=== PATIENT | male | born 1945 | race Caucasian/White ===

== ENCOUNTER 2016-12-29 07:15 | Day surgery (SDC) | payer MEDICARE ==
[~2016-12-29 07:15] MED LIST: ALBUTEROL2.5 MG/NEB INH; ALLOPURINOL100 MG PO; BENADRYL 50MG C50 MG PO; COREG 3.125M3.125 MG PO; FENOFIBRATE160 MG PO; FISH OIL 500 M1 EACH PO; GABAPENTIN300 MG PO; GEMFIBROZIL600 M1 PO; GOOD NEIGHBOR P10 M1 PO; IMDUR 60MG. TAB60 MG PO; KEFLEX 500MG.500 MG PO; LASIX 40MG. TAB40 MG PO; LASIX PO; LEVOTHROID0.075 MG PO; LEVOTHYROXINE0.1 MG PO; LISINOPRIL2.5 MG NG; LISINOPRIL2.5 MG PO; LOSARTAN POTASS25 MG PO; METFORMIN500 MG PO; METOCLOPRAMIDE H PO; METOLAZONE 5MG T5 MG PO; MICRO-K 10 MEQ10 MEQ PO; MOBIC15 MG PO; NIACIN1000 MG PO; NITROSTAT 0.4M0.4 MG SL; POTASSIUM CHLO10 ME3 PO; POTASSIUM PO; PREDNISONE 20MG20 MG PO; PROAIR HFA0.09 MG/AC INH; PROTONIX 40MG T40 MG PO; PROTONIX40 MG PO; SULINDAC200 MG PO; SYMBICORT1 AE1 IH; Tramadol HCl50 MG PO; VITAMIN D310000 UNI1 PO
[2016-12-29 07:57] LABS: HEMOGLOBIN 14.3 g/dL (14.1-18.0); LYMPH # 1.7 K/mm3 (0.7-4.5); LYMPH % 15.3 % (10-50)
[2016-12-29 08:00] LABS: BUN 29 mg/dL (7-18); GFR (ESTIMATED) 60 ML/MIN (>60)
--- NOTE | 2016-12-29 10:32 | RADIOLOGY REPORT PS360 ---
CARDIAC CATHETERIZATION DATE OF CATHETERIZATION:12/29/2016 8:43 AM PROCEDURES: 1. Left heart catheterization 2. Left ventriculogram 3. Selective coronary angiogram 4. FFR to the LAD 5. Drug-eluting stent deployment to the proximal and mid LAD 6. Drug-eluting stent deployment to the large first diagonal artery INDICATION FOR TEST: 1. Angina pectoris class III 2. Abnormal noninvasive cardiac study 3. Ischemic response to adenosine with an FFR 0.75 to the LAD 4. Coronary artery disease Informed consent was obtained prior to the procedure. COMPLICATIONS: None ESTIMATED BLOOD LOSS: Less than 10 ml. TECHNIQUE: One percent lidocaine used to anesthetize the right anterior aspect of the wrist. The right radial artery was accessed via the Seldinger technique. A 6 Armenian sheath was placed in the right radial artery. 2.5 mg of verapamil, 800 mcg of nitroglycerin and 5000 U Heparin were given through the arterial sheath. The pigtail catheter were used to perform left heart catheterization left ventriculogram and selective coronary angiogram. At the end of the diagnostic angiogram 60 mg of Effient oral was given and an additional 5000 units of heparin was administered. The ACT measured 227 seconds therefore an additional 2000 units of heparin was administered. An Abacastari left guide catheter was placed in the ascending aorta and the FFR wire was normalized. The guide catheter was used intubate the left main artery and the FFR wire was placed into the mid and distal LAD. Adenosine was infused in the FFR index dropped to 0.75 at just 1 minute of infusion therefore the test was terminated. Patient was also complaining of chest burning and chest pain during infusion. At this point a 3 mm x 38 mm resolute Guille stent was deployed in the mid LAD at 16 eleni. An additional 2.75 x 34 mm [place] resolute stent was then deployed at 16 eleni in the mid LAD overlapping the first stent deployed. The balloon was brought back and between the 2 stents and deployed at 20 eleni with this 2.75 mm balloon. A choice PT floppy wire was in placed into the large diagonal artery and a 3 mm x 12 mm balloon was deployed at 16 eleni in the proximal LAD extending into this very large first diagonal artery. An additional 3 mm x 15 mm resolute [place] stent was deployed at 14 eleni in the proximal LAD extending into this very large first diagonal artery. The wire was pulled back and then placed down into the LAD and a 3 mm x 8 mm balloon was used to open the struts going into the LAD proper. An additional 3 mm x 12 mm resolute Guille stent was deployed in the proximal to mid LAD crossing this very large first diagonal artery and deployed at 20 eleni. Excellent angiographic results were obtained with SHYAM-3 flow down the LAD and diagonal artery before and after the procedure. The closing ACT was 224 seconds therefore an additional 3000 units of heparin was administered intravenously. The sheath was removed good hemostasis was achieved using TR band in patient was transferred to the postop holding area in stable condition ANGIOGRAPHIC RESULTS: 1. The left main artery normal 2. The left anterior descending artery proximally has a 30-40% eccentric stenosis immediately proximal to a very large first diagonal artery. There is then additional 40 and 50% mid vessel stenoses. There is one focal area that appears to be at least 60% in the mid segment. The first diagonal artery is a larger caliber vessel then the LAD itself and has an ostial 80% stenosis. The first diagonal artery is a very large vessel equal limits in myocardial perfusion as the LAD proper 3. The circumflex artery is a nondominant yet still large caliber vessel giving rise to a large first obtuse marginal artery which has a proximal 20-30% stenosis while the second obtuse marginal artery has mild 10% stenoses 4. The right coronary artery is a large dominant vessel has proximal 10% stenoses with a mid vessel 30-40% stenosis immediately adjacent to the RV marginal branch and normal distally 5. The ABDI ventriculogram reveals normal 65% 6. The left ventricular end-diastolic pressure 18 mmHg IMPRESSION: 1. Severe disease in the very large first diagonal artery which is occluded in size and function as the LAD proper. 2. Successful stenting of the proximal LAD extending into the proximal portion of this large first diagonal artery severe disease reduced to 0% with 1 drug-eluting stent 3. Angiographically indeterminate disease in the LAD which produced a severe ischemic response to adenosine at 0.75 in the LAD 4. Successful stenting of the proximal to mid LAD reducing the hemodynamically severe disease to angiographically normal vessel with 3 drug-eluting stents as described above in the LAD proper 5. Normal ejection fraction 6. Mildly elevated LVEDP PLAN: 1. Effient and aspirin 2. LDL less than 55 3. Avoidance of tobacco products 4. Cardiac rehabilitation 5. Risk factor modification
[2016-12-29 15:04] VITALS: BP 124/81
== END 2016-12-29 15:06 | disposition home or self-care (01) ==
LOC: EDBD 07:15 → CATHLAB 07:15
PROVIDERS: Internal Medicine
PROC: B2111ZZ Fluoroscopy of Multiple Coronary Arteries using Low Osmolar Contrast (ICD-10-PCS; 2016-12-29)
PROC: B2151ZZ Fluoroscopy of Left Heart using Low Osmolar Contrast (ICD-10-PCS; 2016-12-29)
PROC: 4A033BC Measurement of Arterial Pressure, Coronary, Percutaneous Approach (ICD-10-PCS; 2016-12-29)
PROC: 027035Z Dilation of Coronary Artery, One Artery with Two Drug-eluting Intraluminal Devices, Percutaneous Approach (ICD-10-PCS; 2016-12-29)
PROC: 4A023N7 Measurement of Cardiac Sampling and Pressure, Left Heart, Percutaneous Approach (ICD-10-PCS; principal; 2016-12-29 09:30)
DX: I25.119 Atherosclerotic heart disease of native coronary artery with unspecified angina pectoris (principal); Z72.0 Tobacco use; I11.9 Hypertensive heart disease without heart failure; J44.9 Chronic obstructive pulmonary disease, unspecified; E11.9 Type 2 diabetes mellitus without complications
CPT/HCPCS: C1725; C1760; C1769; C1876; J0153; J1644; Q9967

== ENCOUNTER 2017-01-06 11:07 | Emergency (ER) | payer MEDICARE ==
[~2017-01-06] VITALS: Ht 172.7 cm; Wt 108.9 kg
[2017-01-06] MEDS ORDERED: RANEXA500 M1 PO (11:25)
[2017-01-06 11:35] LABS: HEMOGLOBIN 14.8 g/dL (14.1-18.0); LYMPH # 1.8 K/mm3 (0.7-4.5); LYMPH % 22.1 % (10-50)
--- OUTSIDE RECORDS SUMMARY | 2017-01-06 11:41 | External Medical Summary Rpt ---
Author Author , CALIXTO DE LUNA Address Unknown Phone [email or web address] Care Team Providers Care Dark Room Attendant Name Role Phone Lesia DELATORRE, Unavailable Unavailable Lesia Stevenson [employer]OTHER[employer]ICAL [employer]INE[employer], Unavailable Unavailable Vika Stevenson [employer] Purpose Continuity of Care Document - 12-07-2012 through 2016 Problems Code Diagnosis DOS Provider Status 244.9 Hypothyroid [facility] 272.4 Hyperlipide [facility] 274.9 Gout [facility] 276.8 Hypokalemia [facility] [id number] Chest pain [facility] 553.3 Hiatal [facility] [id number] Active [facility] 780.57 Sleep apnea [facility] [id number] Chronic [facility] R07.9 CHEST PAIN, UNSPECIFIED Allergies, Adverse Reactions, Alerts Type Drug Allergy Food Allergy Adverse Reaction to Substance Substance Reaction Severity Iodine-Containing Unknown Unknown Penicillin Unknown Unknown Black Pepper I-ITCHING Unknown Glover Pepper I-ITCHING W/BLACK Unknown PEPPER BLACK PEPPER (FOOD) I-ITCHING Unknown Medications Na ND Rx Da Fi Fi Am Da Di Ph RX Ph St me C No te ll ll ou ys ag ar # ys at rm s nt no ma ic us Or Da si cy ia de te s n re d SO 00 12 0 No DI 40 -1 UM 97 1- Lo 98 20 ng CH 30 13 er LO 9 RI Ac DE ti ve 0. 9% SO ASHLEY TI ON DI 00 12 0 No PH 40 -1 EN 92 1- Lo HY [address] 03 13 er AM 1 IN Ac E ti 50 ve MG /M L SY RN G Fa 63 12 0 No mo 32 -1 ti 30 1- Lo di 73 20 ng ne 90 13 er 2 20 Ac MG ti /2 ve ML Vi al SO 00 12 0 No ASHLEY 00 -1 -M 90 1- Lo ED 04 20 ng RO 72 13 er L 2 12 Ac 5 ti MG ve AL 63 06 0 No PI 73 -2 RI 90 7- Lo N 02 20 ng EC 30 13 er 1 32 Ac 5 ti MG ve TA BL ET FU 51 06 0 No RO 07 -2 SE 90 7- Lo RI 07 20 ng DE 32 13 er 0 40 Ac ti MG ve TA BL ET SY 00 06 0 No NT 07 -2 HR 45 7- Lo OI 18 20 ng D 21 13 er 75 1 Ac MC ti G ve TA BL ET LI 68 06 0 No SI 18 -2 NO 00 7- Lo WA 51 20 ng IL 20 13 er 1 2. Ac 5 ti MG ve TA BL ET KL 00 06 0 No OR 24 -2 -C 50 7- Lo ON 04 20 ng 10 13 er 10 1 Ac ME ti Q ve TA BL ET Sa 63 06 1 No li 80 -2 ne 70 6- Lo 10 20 ng Fl 07 13 er us 5 h Ac 10 ti ML ve Sy ri ng e 66 06 0 No PI 55 -2 RI 30 6- Lo N 00 20 ng 32 10 13 er 5 1 MG Ac ti TA ve BL ET NI 00 06 0 No TR 28 -2 O- 10 6- Lo BI 32 20 ng D 60 13 er 2% 8 Ac OI ti NT ve ME NT IS 00 06 1 No OS 78 -2 OR 11 6- Lo BI 55 20 ng DE 61 13 er 3 DN Ac ti 10 ve MG TA BL ET PA 51 06 1 No NT 07 -2 OP 90 6- Lo RA 05 20 ng ZO 12 13 er LE 0 Ac SO ti D ve DR 40 MG TA B Vital Signs 05-24-2013 13:06 Name Value Interpretat Reference Comment ion Range Body 97.6 [degF] Temperature BP 82 mm[Hg] Diastolic BP Systolic 149 mm[Hg] Heart 93 /min Rate/Pulse O2% 97 % Respiratory 20 /min Rate 05-24-2013 12:30 Name Value Interpretat Reference Comment ion Range BP 99 mm[Hg] Diastolic BP Systolic 147 mm[Hg] Heart 95 /min Rate/Pulse O2% 97 % Respiratory 20 /min Rate 12-08-2012 09:00 Name Value Interpretat Reference Comment ion Range Body 98.0 [degF] Temperature BP 66 mm[Hg] Diastolic BP Systolic 111 mm[Hg] Heart 78 /min Rate/Pulse Respiratory 20 /min Rate 12-08-2012 08:00 Name Value Interpretat Reference Comment ion Range O2% 97 % 12-07-2012 16:00 Name Value Interpretat Reference Comment ion Range Height 172.72 cm Weight 107.503 kg Measured 12-07-2012 01:38 Name Value Interpretat Reference Comment ion Range Body 98.0 [degF] Temperature BP 89 mm[Hg] Diastolic BP Systolic 135 mm[Hg] Heart 76 /min Rate/Pulse O2% 96 % Respiratory 20 /min Rate Weight 0 [oz_av] Measured Results Labs Lab Lab Date Result Refere Interp Status Commen Order Detail nces retati t Range on Urinalysis dipstick W Reflex Microscopic panel in Urine (01-01-2017 09:45) Bacteri 1+ O complet a 017 ed [Presen 09:45 ce] in Urine sedimen t by Light microsc opy Erythro NONE 0 complet cytes 017 ed [Presen 09:45 ce] in Urine sedimen t by Light microsc opy Epithel 3-5 OCC complet ial 017 ed cells.s 09:45 quamous [Presen ce] in Urine sedimen t by Microsc opy high power field Urinalysis dipstick W Reflex Microscopic panel in Urine (01-01-2017 09:45) Appeara CLEAR CLEAR complet nce of 017 ed Urine 09:45 Bilirub NEGATIV NEG complet in 017 E ed [Presen 09:45 ce] in Urine by Test strip Erythro TRACE-L NEG complet cytes 017 YSED ed [Presen 09:45 ce] in Urine Color YELLOW YELLOW complet of 017 ed Urine 09:45 Ketones NEGATIV NEG complet 017 E ed [Presen 09:45 ce] in Urine by Automat ed test strip Mucus NEGATIV NEG complet [Presen 017 E ed ce] in 09:45 Urine sedimen t by Light microsc opy Nitrite NEGATIV NEG complet 017 E ed [Presen 09:45 ce] in Urine by Test strip Urobili 0.2 NEG complet nogen 017 ed [Presen 09:45 ce] in Urine by Test strip COMPREHENSIVE METABOLIC PANEL (05-24-2013 11:40) Glucose 204 74-106 complet 013 mg/dL ed Bld-mCn 11:40 c BUN 20 7-18 complet Bld-mCn 013 mg/dL ed c 11:40 Creat 1.1 0.8-1.3 complet SerPl-m 013 mg/dL ed Cnc 11:40 GFR/BSA 67 Greater complet .pred 013 ML/MIN than ed SerPl 11:40 60 Schwart z-vRate Sodium 136 136-145 complet SerPl-s 013 mmoL/L ed Cnc 11:40 Potassi 3.5 3.5-5.1 complet um 013 mmoL/L ed SerPl-s 11:40 Cnc Chlorid 100 98-107 complet e 013 mmoL/L ed SerPl-s 11:40 Cnc CO2 30 21.0-32 complet SerPl-s 013 mmoL/L .0 ed Cnc 11:40 Calcium 9.1 8.5-10. complet 013 mg/dL 1 ed SerPl-m 11:40 Cnc Prot 7.6 6.4-8.2 complet SerPl-m 013 gm/dL ed Cnc 11:40 Albumin 4.0 3.4-5.0 complet 013 gm/dL ed SerPl-m 11:40 Cnc Globuli 3.6 1.3-3.2 complet n 013 gm/dL ed Ser-mCn 11:40 c Albumin 1.1 UNK 1.1-1.8 complet /Glob 013 ed SerPl-m 11:40 Rto Bilirub 1.1 0.2-1.0 complet 013 mg/dL ed SerPl-m 11:40 Cnc AST 34 U/L 15-37 complet SerPl-c 013 ed Cnc 11:40 ALT 91 U/L 30-65 complet SerPl-c 013 ed Cnc 11:40 ALP 90 U/L 50-136 complet SerPl-c 013 ed Cnc 11:40 CBC with AUTO DIFF (05-24-2013 11:40) WBC # 12-11-2 6.3 4.8-10. complet Bld 013 K/MM3 8 ed Auto 11:40 RBC # 12-11-2 5.30 4.6-6.2 complet Bld 013 M/mm3 ed Auto 11:40 Hgb 12-11-2 16.7 14.1-18 complet Bld-mCn 013 g/dL .0 ed c 11:40 Hct Fr 12-11-2 48.2 % 42.0-52 complet Bld 013 .0 ed 11:40 MCV RBC 12-11-2 90.9 fl 82.2-97 complet 013 .8 ed 11:40 MCH RBC 11-2 31.5 pg 27-31.2 complet Qn 013 ed Auto 11:40 MEAN 12-11-2 34.7 31.8-35 complet CORPUSC 013 g/dl .4 ed ULAR 11:40 HGB CONC RDW RBC -11-2 14.2 % 11.5-17 complet Auto 013 .5 ed 11:40 Platele 12-11-2 261 142-424 complet t Bld 013 K/mm3 ed Ql 11:40 Manual MEAN 05-24-2 7.3 fl 7.4-10. complet PLATELE 013 4 ed T 11:40 VOLUME Granulo 12-11-2 55.0 % 37.0-80 complet cytes 013 .0 ed Fr Bld 11:40 Auto LYMPH % 12-11-2 39.2 % 10-50 complet 013 ed 11:40 Monocyt 12-11-2 4.6 % 1.7-9.3 complet es Fr 013 ed Bld 11:40 Auto Eosinop 12-11-2 0.6 % 0.1-12. complet hil Fr 013 0 ed Bld 11:40 Auto Basophi 12-11-2 0.6 % 0.1-2.0 complet ls Fr 013 ed Bld 11:40 Auto Granulo 12-11-2 3.5 1.3-8.0 complet cytes # 013 K/mm3 ed Bld 11:40 Auto Lymphoc 12-11-2 2.5 0.7-4.5 complet ytes Fr 013 K/mm3 ed Bld 11:40 Auto Monocyt 12-11-2 0.3 0.1-1.0 complet es # 013 K/mm3 ed Bld 11:40 Auto Eosinop 11-2 0.0 0.0-0.4 complet hil # 013 K/mm3 ed Bld 11:40 Auto Basophi 11-2 0.0 0-0.2 complet ls # 013 K/MM3 ed Bld 11:40 Auto COMPREHENSIVE METABOLIC PANEL (12-07-2012 02:00) Glucose 121 74-106 complet 013 mg/dL ed Bld-mCn 02:00 c BUN 26 7-18 complet Bld-mCn 013 mg/dL ed c 02:00 Creat 1.4 0.8-1.3 complet SerPl-m 013 mg/dL ed Cnc 02:00 GFR 51 Greater complet (ESTIMA 013 ML/MIN than ed JOVITA) 02:00 60 Sodium 138 136-145 complet SerPl-s 013 mmoL/L ed Cnc 02:00 Potassi 4.1 3.5-5.1 complet um 013 mmoL/L ed SerPl-s 02:00 Cnc Chlorid 103 98-107 complet e 013 mmoL/L ed SerPl-s 02:00 Cnc CO2 30 21.0-32 complet SerPl-s 013 mmoL/L .0 ed Cnc 02:00 Calcium 8.7 8.5-10. complet 013 mg/dL 1 ed SerPl-m 02:00 Cnc Prot 6.8 6.4-8.2 complet SerPl-m 013 gm/dL ed Cnc 02:00 Albumin 3.8 3.4-5.0 complet 013 gm/dL ed SerPl-m 02:00 Cnc Globuli 3.0 1.3-3.2 complet n 013 gm/dL ed Ser-mCn 02:00 c Albumin 1.3 UNK 1.1-1.8 complet /Glob 013 ed SerPl-m 02:00 Rto Bilirub 0.4 0.2-1.0 complet 013 mg/dL ed SerPl-m 02:00 Cnc AST 23 U/L 15-37 complet SerPl-c 013 ed Cnc 02:00 ALT 75 U/L 30-65 complet SerPl-c 013 ed Cnc 02:00 ALP 80 U/L 50-136 complet SerPl-c 013 ed Cnc 02:00 Amylase SerPl-cCnc (12-07-2012 02:00) Amylase 45 U/L 25-115 complet 013 ed SerPl-c 02:00 Cnc LIPASE (12-07-2012 02:00) LIPASE 140 U/L 73-393 complet 013 ed 02:00 CBC with AUTO DIFF (12-07-2012 02:00) WBC # 12-07-2 5.0 4.8-10. complet Bld 013 K/MM3 8 ed Auto 02:00 RBC # 12-07-2 4.62 4.6-6.2 complet Bld 013 M/mm3 ed Auto 02:00 Hgb 12-07-2 15.0 14.1-18 complet Bld-mCn 013 g/dL .0 ed c 02:00 Hct Fr 43.6 % 42.0-52 complet Bld 013 .0 ed 02:00 MCV RBC 12-07-2 94.3 fl 82.2-97 complet 013 .8 ed 02:00 MCH RBC 12-07-2 32.5 pg 27-31.2 complet Qn 013 ed Auto 02:00 MEAN 12-07-2 34.5 31.8-35 complet CORPUSC 013 g/dl .4 ed ULAR 02:00 HGB CONC RDW RBC 12-07-2 13.2 % 11.5-17 complet Auto 013 .5 ed 02:00 Platele 12-07-2 246 142-424 complet t Bld 013 K/mm3 ed Ql 02:00 Manual MEAN 12-07-2 7.1 fl 7.4-10. complet PLATELE 013 4 ed T 02:00 VOLUME Granulo 12-07-2 55.5 % 37.0-80 complet cytes 013 .0 ed Fr Bld 02:00 Auto LYMPH % 12-07-2 31.7 % 10-50 complet 013 ed 02:00 Monocyt 12-07-2 6.7 % 1.7-9.3 complet es Fr 013 ed Bld 02:00 Auto Eosinop 12-07-2 4.8 % 0.1-12. complet hil Fr 013 0 ed Bld 02:00 Auto Basophi 12-07-2 1.4 % 0.1-2.0 complet ls Fr 013 ed Bld 02:00 Auto Granulo 2 2.8 1.3-8.0 complet cytes # 013 K/mm3 ed Bld 02:00 Auto Lymphoc 2 1.6 0.7-4.5 complet ytes Fr 013 K/mm3 ed Bld 02:00 Auto Monocyt 12-07-2 0.3 0.1-1.0 complet es # 013 K/mm3 ed Bld 02:00 Auto Eosinop 2 0.2 0.0-0.4 complet hil # 013 K/mm3 ed Bld 02:00 Auto Basophi 12-07-2 0.1 0-0.2 complet ls # 013 K/MM3 ed Bld 02:00 Auto Encounters Encounter Start End Date Code Location Performer Type Date Emergency JOHN ALVA MD (ER) 3 12:00 3 13:07 [facility] Inpatient [place] ([place]) 3 01:45 3 09:00 [facility]
--- OUTSIDE RECORDS SUMMARY | 2017-01-06 11:41 | External Medical Summary Rpt ---
Author Author , CALIXTO DE LUNA Address Unknown Phone [email or web address] Care Team Providers Care Wash Barrel Leader Name Role Phone Lesia DELATORRE, Unavailable Unavailable Lesia Stevenson [facility], Unavailable Unavailable Vika Stevenson [facility] Purpose Continuity of Care Document - 12-07-2012 through 2016 Problems Code Diagnosis DOS Provider Status 244.9 Hypothyroid [facility] 272.4 Hyperlipide [facility] 274.9 Gout [facility] 276.8 Hypokalemia [facility] [id number] Chest pain [facility] 553.3 Hiatal [facility] [id number] Active [facility] 780.57 Sleep apnea [facility] [id number] Chronic [facility] R07.9 CHEST PAIN, UNSPECIFIED Allergies, Adverse Reactions, [...] RO 07 -2 SE 90 7- Lo [place] 07 20 ng DE 32 13 er 0 40 Ac ti MG ve TA BL ET SY 00 06 0 No NT 07 -2 HR 45 7- Lo OI 18 20 ng D 21 13 er 75 1 Ac MC ti G ve TA BL ET LI 68 06 0 No SI 18 -2 NO 00 7- Lo NV 51 20 ng [place] 20 13 er [...] ALVA MD (ER) 3 12:00 3 13:[address] [facility] Inpatient [place] ([place]) 3 01:45 3 09:00 [facility]
--- OUTSIDE RECORDS SUMMARY | 2017-01-06 11:41 | External Medical Summary Rpt ---
Demographics Preferred Language Urdu Marital Status Unknown Caodaism Affiliation Unknown Race Unknown Ethnic Group Unknown Author Author , CALIXTO DE LUNA Address Unknown Phone Immunization Unable to retrieve immunization data due to connection failure with Immunization Registry. Please try again later.
--- OUTSIDE RECORDS SUMMARY | 2017-01-06 11:41 | External Medical Summary Rpt ---
Demographics Preferred Language Faroese Marital Status Unknown Druze Affiliation Unknown Race Unknown Ethnic Group Unknown Author Author , CALIXTO DE LUNA Address Unknown Phone Immunization Unable to retrieve immunization data due to connection failure with Immunization Registry. Please try again later.
--- OUTSIDE RECORDS SUMMARY | 2017-01-06 11:42 | External Medical Summary Rpt ---
Author Author [facility] [facility], [employer] Organization [employer] Address Unknown Phone Unavailable Results Urinalysis dipstick W Reflex Microscopic panel in Urine Observa Value Referen Units Interpr Notes Date tion ce etation Range Appeara CLEAR CLEAR No No No Jan 01 nce of informa informa informa 2016 Urine tion in tion in tion in 9:45 AM source source source data data data Bacteri 1+ O No No No Jan 01 a informa informa informa 2016 [Presen tion in tion in tion in 9:45 AM ce] in source source source Urine data data data sedimen t by Light microsc opy Bilirub NEGATIV NEG No No No Jan 01 in E informa informa informa 2016 [Presen tion in tion in tion in 9:45 AM ce] in source source source Urine data data data by Test strip Erythro TRACE-L NEG No No No Jan 01 cytes YSED informa informa informa 2016 [Presen tion in tion in tion in 9:45 AM ce] in source source source Urine data data data Color YELLOW YELLOW No No No Jan 01 of informa informa informa 2016 Urine tion in tion in tion in 9:45 AM source source source data data data Glucose NEG No No No Jan 01 [Mass/vol informati informati informati 2016 9:45 ume] in on in on in on in AM Urine by source source source Test data data data strip Ketones NEGATIV NEG mg/dL No No Jan 01 E informa informa 2016 [Presen tion in tion in 9:45 AM ce] in source source Urine data data by Automat ed test strip Mucus NEGATIV NEG No No No Jan 01 [Presen E informa informa informa 2016 ce] in tion in tion in tion in 9:45 AM Urine source source source sedimen data data data t by Light microsc opy Nitrite NEGATIV NEG No No No Jan 01 E informa informa informa 2016 [Presen tion in tion in tion in 9:45 AM ce] in source source source Urine data data data by Test strip pH of 5.0 - 8.5 No Normal No Jan 01 Urine informati informati 2017 9:45 on in on in AM source source data data Protein NEG mg/dL No No Jan 01 [Mass/vol informati informati 2017 9:45 ume] in on in on in AM Urine by source source Automated data data test strip Erythro NONE 0 rbc/hpf No No Jan 01 cytes informa informa 2016 [Presen tion in tion in 9:45 AM ce] in source source Urine data data sedimen t by Light microsc opy Specific 1.005 - No Normal No Jan 01 gravity 1.030 informati informati 2017 9:45 of Urine on in on in AM source source data data Epithel 3-5 OCC #/hpf No No Jan 01 ial informa informa 2017 cells.s tion in tion in 9:45 AM quamous source source data data [Presen ce] in Urine sedimen t by Microsc opy high power field Urobili 0.2 NEG E.U./dL No No Jan 01 nogen informa informa 2016 [Presen tion in tion in 9:45 AM ce] in source source Urine data data by Test strip Leukocyte O wbc/hpf No No Jan 01 s informati informati 2017 9:45 [#/volume on in on in AM ] in source source Urine data data Urinalysis dipstick W Reflex Microscopic panel in Urine Observa Value Referen Units Interpr Notes Date tion ce etation Range Appeara CLEAR CLEAR No No No Jan 01 nce of informa informa informa 2017 Urine tion in tion in tion in 9:45 AM source source source data data data Bilirub NEGATIV NEG No No No Jan 01 in E informa informa informa 2016 [Presen tion in tion in tion in 9:45 AM ce] in source source source Urine data data data by Test strip Erythro TRACE-L NEG No No No Jan 01 cytes YSED informa informa informa 2017 [Presen tion in tion in tion in 9:45 AM ce] in source source source Urine data data data Color YELLOW YELLOW No No No Jan 01 of informa informa informa 2016 Urine tion in tion in tion in 9:45 AM source source source data data data Glucose NEG No No No Jan 01 [Mass/vol informati informati informati 2016 9:45 ume] in on in on in on in AM Urine by source source source Test data data data strip Ketones NEGATIV NEG mg/dL No No Jan 01 E informa informa 2016 [Presen tion in tion in 9:45 AM ce] in source source Urine data data by Automat ed test strip Mucus NEGATIV NEG No No No Jan 01 [Presen E informa informa informa 2016 ce] in tion in tion in tion in 9:45 AM Urine source source source sedimen data data data t by Light microsc opy Nitrite NEGATIV NEG No No No Jan 01 E informa informa informa 2016 [Presen tion in tion in tion in 9:45 AM ce] in source source source Urine data data data by Test strip pH of 5.0 - 8.5 No Normal No Jan 01 Urine informati informati 2016 9:45 on in on in AM source source data data Protein NEG mg/dL No No Jan 01 [Mass/vol informati informati 2016 9:45 ume] in on in on in AM Urine by source source Automated data data test strip Specific 1.005 - No Normal No Jan 01 gravity 1.030 informati informati 2016 9:45 of Urine on in on in AM source source data data Urobili 0.2 NEG E.U./dL No No Jan 01 nogen informa informa 2016 [Presen tion in tion in 9:45 AM ce] in source source Urine data data by Test strip Natriutietic peptide B [Mass/volume] in Serum or Plasma Observa Value Referen Units Interpr Notes Date tion ce etation Range Natriutie 0 - 100 pg/mL Normal No Jan 01 tic informati 2016 9:35 peptide B on in AM source [Mass/vol data ume] in Serum or Plasma Cardiac enzymes Observa Value Referen Units Interpr Notes Date tion ce etation Range Creatine 0 - 4.0 U/L Normal No Jan 01 kinase.MB informati 2016 9:35 /Creatine on in AM source kinase.to data deidra [Ratio] in Serum or Plasma Creatine 0.0 - 3.6 ng/mL Normal No Jan 01 kinase.MB informati 2017 9:35 on in AM [Mass/vol source ume] in data Serum or Plasma Creatine 39 - 308 U/L Normal No Jan 01 kinase informati 2017 9:35 [Enzymati on in AM c source activity/ data volume] in Serum or Plasma Troponin 0.00 - ng/mL High 0.04 - Jan 01 I.cardiac 0.06 0.49 IS 2017 9:35 AN AM [Mass/vol INDETERMI ume] in NANT Serum or ZONEAnd Plasma can be consisten t with the following diseases: Trauma Criticall y ill patients Huynh >30% TBSACHF Hypothyro idism Amyloidos isHyperte nsion Myocardit is SepsisHyp otension Rhabdomyo lysis Vital exhaust.P ostop surgery Pulmonary embolism CVARenal failure Acute neurologi wilberto disease Atrial fib. Comprehensive metabolic 2000 panel in Serum or Plasma Observa Value Referen Units Interpr Notes Date tion ce etation Range Albumin/G 1.1 - 1.8 No Low No Jan 01 lobulin informati informati 2016 9:35 [Mass on in on in AM ratio] in source source Serum or data data Plasma Albumin 3.4 - 5.0 gm/dL Normal No Jan 01 [Mass/vol informati 2016 9:35 ume] in on in AM Serum or source Plasma data Alkaline 46 - 116 U/L Normal No Jan 01 phosphata informati 2016 9:35 se on in AM [Enzymati source c data activity/ volume] in Serum or Plasma Bilirubin 0.2 - 1.0 mg/dL Normal No Jan 01 .total informati 2016 9:35 [Mass/vol on in AM ume] in source Serum or data Plasma Urea 7 - 18 mg/dL High No Jan 01 nitrogen informati 2016 9:35 [Mass/vol on in AM ume] in source Serum or data Plasma Calcium 8.5 - mg/dL Normal No Jan 01 [Mass/vol 10.1 informati 2016 9:35 ume] in on in AM Serum or source Plasma data Chloride 98 - 107 mmoL/L Normal No Jan 01 [Moles/vo informati 2016 9:35 lume] in on in AM Serum or source Plasma data Carbon 21.0 - mmoL/L High No Jan 01 dioxide, 32.0 informati 2016 9:35 total on in AM [Moles/vo source lume] in data Serum or Plasma Creatinin 0.70 - mg/dL Normal No Jan 01 e 1.30 informati 2016 9:35 [Mass/vol on in AM ume] in source Serum or data Plasma Creatinin 50 - 200 ML/MIN Normal No Jan 01 e renal informati 2016 9:35 clearance on in AM source predicted data by Cockcroft -Gault formula Estimated >60 ML/MIN No REFERENCE Jan 01 informati RANGE: 2017 9:35 glomerula on in >60 AM r source ML/MIN/1. filtratio data 73 SQUARE n rate METERSIf (GF this patient is -A merican, then multiply theresult by 1.210. Globulin 1.3 - 3.2 gm/dL High No Jan 01 [Mass/vol informati 2016 9:35 ume] in on in AM Serum source data Glucose 74 - 106 mg/dL High No Jan 01 [Mass/vol informati 2016 9:35 ume] in on in AM Serum or source Plasma data Potassium 3.5 - 5.1 mmoL/L Normal MAY BE Jan 01 ELEVATED 2016 9:35 [Moles/vo DUE TO AM lume] in SLIGHT Serum or HEMOLYSIS Plasma Sodium 136 - 145 mmoL/L Normal No Jan 01 [Moles/vo informati 2016 9:35 lume] in on in AM Serum or source Plasma data Aspartate 15 - 37 U/L Normal MAY BE Jan 01 ELEVATED 2016 9:35 aminotran DUE TO AM sferase SLIGHT [Enzymati HEMOLYSIS c activity/ volume] in Serum or Plasma Alanine 12 - 78 U/L Normal No Jan 01 aminotran informati 2016 9:35 sferase on in AM [Enzymati source c data activity/ volume] in Serum or Plasma Protein 6.4 - 8.2 gm/dL Normal No Jan 01 [Mass/vol informati 2016 9:35 ume] in on in AM Serum or source Plasma data CBC W Auto Differential panel in Blood Observa Value Referen Units Interpr Notes Date tion ce etation Range Granulocy 1.3 - 8.0 K/mm3 Normal No Jan 01 machelle informati 2016 9:35 [#/volume on in AM ] in source Blood by data Automated count Granulocy 37.0 - % Normal No Jan 01 machelle/100 80.0 informati 2016 9:35 leukocyte on in AM s in source Blood by data Automated count Hematocri 42.0 - % Normal No Jan 01 t [Volume 52.0 informati 2016 9:35 on in AM Fraction] source of Blood data Hemoglobi 14.1 - g/dL Normal No Jan 01 n 18.0 informati 2016 9:35 [Mass/vol on in AM ume] in source Blood data Lymphocyt 0.7 - 4.5 K/mm3 Normal No Jan 01 es informati 2016 9:35 [#/volume on in AM ] in source Unspecifi data ed specimen by Automated count Lymphocyt 10 - 50 % Normal No Jan 01 es informati 2016 9:35 [#/volume on in AM ] in source Unspecifi data ed specimen by Automated count Erythrocy 27 - 31.2 pg Normal No Jan 01 te mean informati 2016 9:35 corpuscul on in AM ar source hemoglobi data n [Entitic mass] Erythrocy 31.8 - g/dl Normal No Jan 01 te mean 35.4 informati 2016 9:35 corpuscul on in AM ar source hemoglobi data n concentra tion [Mass/vol ume] by Automated count Erythrocy 82.2 - fL Normal No Jan 01 te mean 97.8 informati 2016 9:35 corpuscul on in AM ar volume source [Entitic data volume] by Automated count Monocytes 0.1 - 1.0 K/mm3 Normal No Jan 01 informati 2017 9:35 [#/volume on in AM ] in source Blood by data Automated count Monocytes 1.7 - 9.3 % Normal No Jan 01 /100 informati 2016 9:35 leukocyte on in AM s in source Blood by data Automated count Platelets 142 - 424 K/mm3 Normal No Jan 01 informati 2017 9:35 [#/volume on in AM ] in source Blood data Erythrocy 4.6 - 6.2 M/mm3 Normal No Jan 01 machelle informati 2017 9:35 [#/volume on in AM ] in source Amniotic data fluid Erythrocy 11.5 - % Normal No Jan 01 te 17.5 informati 2017 9:35 distribut on in AM ion width source [Entitic data volume] by Automated count Leukocyte 4.8 - K/mm3 Normal No Jan 01 s 10.8 informati 2016 9:35 [#/volume on in AM ] in source Blood data Activated clotting time in Blood by Coagulation assay Observa Value Referen Units Interpr Notes Date tion ce etation Range Activated 74 - 125 SEC High No Dec 29 clotting alert informati 2017 9:53 time in on in AM Blood by source Coagulati data on assay Activated clotting time in Blood by Coagulation assay Observa Value Referen Units Interpr Notes Date tion ce etation Range Activated 74 - 125 SEC High No Dec 29 clotting alert informati 2016 9:23 time in on in AM Blood by source Coagulati data on assay Basic metabolic panel in Blood Observa Value Referen Units Interpr Notes Date tion ce etation Range Urea 7 - 18 mg/dL High No Dec 29 nitrogen informati 2016 7:40 [Mass/vol on in AM ume] in source Serum or data Plasma Calcium 8.5 - mg/dL Normal No Dec 29 [Mass/vol 10.1 informati 2016 7:40 ume] in on in AM Serum or source Plasma data Chloride 98 - 107 mmoL/L Normal No Dec 29 [Moles/vo informati 2016 7:40 lume] in on in AM Serum or source Plasma data Carbon 21.0 - mmoL/L Normal No Dec 29 dioxide, 32.0 informati 2016 7:40 total on in AM [Moles/vo source lume] in data Serum or Plasma Creatinin 0.70 - mg/dL Normal No Dec 29 e 1.30 informati 2017 7:40 [Mass/vol on in AM ume] in source Serum or data Plasma Estimated >60 ML/MIN No REFERENCE Dec 29 informati RANGE: 2017 7:40 glomerula on in >60 AM r source ML/MIN/1. filtratio data 73 SQUARE n rate METERSIf (GF this patient is -A merican, then multiply theresult by 1.210. Glucose 74 - 106 mg/dL Normal No Dec 29 [Mass/vol informati 2016 7:40 ume] in on in AM Serum or source Plasma data Potassium 3.5 - 5.1 mmoL/L Normal No Dec 29 informati 2016 7:40 [Moles/vo on in AM lume] in source Serum or data Plasma Sodium 136 - 145 mmoL/L Normal No Dec 29 [Moles/vo informati 2016 7:40 lume] in on in AM Serum or source Plasma data CBC W Auto Differential panel in Blood Observa Value Referen Units Interpr Notes Date tion ce etation Range Basophils 0 - 0.2 K/MM3 Normal No Dec 29 informati 2016 7:40 [#/volume on in AM ] in source Blood by data Automated count Basophils 0.1 - 2.0 % Normal No Dec 29 /100 informati 2016 7:40 leukocyte on in AM s in source Blood by data Automated count Eosinophi 0.0 - 0.4 K/mm3 Normal No Dec 29 ls informati 2016 7:40 [#/volume on in AM ] in source Blood by data Automated count Eosinophi 0.1 - % Normal No Dec 29 ls/100 12.0 informati 2016 7:40 leukocyte on in AM s in source Blood by data Automated count Granulocy 1.3 - 8.0 K/mm3 High No Dec 29 machelle informati 2016 7:40 [#/volume on in AM ] in source Blood by data Automated count Granulocy 37.0 - % Normal No Dec 29 machelle/100 80.0 informati 2016 7:40 leukocyte on in AM s in source Blood by data Automated count Hematocri 42.0 - % Normal No Dec 29 t [Volume 52.0 informati 2016 7:40 on in AM Fraction] source of Blood data Hemoglobi 14.1 - g/dL Normal No Dec 29 n 18.0 informati 2016 7:40 [Mass/vol on in AM ume] in source Blood data Lymphocyt 0.7 - 4.5 K/mm3 Normal No Dec 29 es informati 2016 7:40 [#/volume on in AM ] in source Unspecifi data ed specimen by Automated count Lymphocyt 10 - 50 % Normal No Dec 29 es informati 2016 7:40 [#/volume on in AM ] in source Unspecifi data ed specimen by Automated count Erythrocy 27 - 31.2 pg High No Dec 29 te mean informati 2016 7:40 corpuscul on in AM ar source hemoglobi data n [Entitic mass] Erythrocy 31.8 - g/dl Normal No Dec 29 te mean 35.4 informati 2017 7:40 corpuscul on in AM ar source hemoglobi data n concentra tion [Mass/vol ume] by Automated count Erythrocy 82.2 - fl Normal No Dec 29 te mean 97.8 informati 2016 7:40 corpuscul on in AM ar volume source [Entitic data volume] by Automated count Monocytes 0.1 - 1.0 K/mm3 Normal No Dec 29 informati 2016 7:40 [#/volume on in AM ] in source Blood by data Automated count Monocytes 1.7 - 9.3 % Normal No Dec 29 informati 2016 7:40 leukocyte on in AM s in source Blood by data Automated count Platelet 7.4 - fl Low No Dec 29 mean 10.4 informati 2016 7:40 volume on in AM [Entitic source volume] data in Blood by Automated count Platelets 142 - 424 K/mm3 Normal No Dec 29 informati 2016 7:40 [#/volume on in AM ] in source Blood data Erythrocy 4.6 - 6.2 M/mm3 Low No Dec 29 machelle informati 2016 7:40 [#/volume on in AM ] in source Amniotic data fluid Erythrocy 11.5 - % Normal No Dec 29 te 17.5 informati 2016 7:40 distribut on in AM ion width source [Entitic data volume] by Automated count Leukocyte 4.8 - K/MM3 Normal No Dec 29 s 10.8 informati 2016 7:40 [#/volume on in AM ] in source Blood data Glucose [Mass/volume] in Capillary blood by Glucometer Observa Value Referen Units Interpr Notes Date ti ce etation Range Glucose 70 - 110 mg/dl Normal No Nov 16 [Mass/vol informati 2016 ume] in on in 11:15 AM Capillary source blood by data Glucomete r Glucose [Mass/volume] in Capillary blood by Glucometer Observa Value Referen Units Interpr Notes Date ti ce etation Range Glucose 70 - 110 mg/dl Normal No Nov 27 [Mass/vol informati 2016 6:19 ume] in on in AM Capillary source blood by data Glucomete r CBC W Auto Differential panel in Blood Observa Value Referen Units Interpr Notes Date ti etation Range Basophils 0 - 0.2 K/MM3 Normal No Nov 27 informati 2016 3:30 [#/volume on in AM ] in source Blood by data Automated count Basophils 0.1 - 2.0 % Normal No Nov 27 informati 2016 3:30 leukocyte on in AM s in source Blood by data Automated count Eosinophi 0.0 - 0.4 K/mm3 Normal No Nov 27 ls informati 2016 3:30 [#/volume on in AM ] in source Blood by data Automated count Eosinophi 0.1 - % Normal No Buck 16 ls/100 12.0 informati 2017 3:30 leukocyte on in AM s in source Blood by data Automated count Granulocy 1.3 - 8.0 K/mm3 Normal No Nov 16 machelle informati 2016 3:30 [#/volume on in AM ] in source Blood by data Automated count Granulocy 37.0 - % Normal No Nov 16 machelle/100 80.0 informati 2016 3:30 leukocyte on in AM s in source Blood by data Automated count Hematocri 42.0 - % Normal No Nov 16 t [Volume 52.0 informati 2016 3:30 on in AM Fraction] source of Blood data Hemoglobi 14.1 - g/dL Normal No Nov 16 n 18.0 informati 2016 3:30 [Mass/vol on in AM ume] in source Blood data Lymphocyt 0.7 - 4.5 K/mm3 Normal No Nov 27 es informati 2016 3:30 [#/volume on in AM ] in source Unspecifi data ed specimen by Automated count Lymphocyt 10 - 50 % Normal No Nov 27 es informati 2016 3:30 [#/volume on in AM ] in source Unspecifi data ed specimen by Automated count Erythrocy 27 - 31.2 pg High No Nov 27 te mean informati 2016 3:30 corpuscul on in AM ar source hemoglobi data n [Entitic mass] Erythrocy 31.8 - g/dl Normal No Nov 27 te mean 35.4 informati 2016 3:30 corpuscul on in AM ar source hemoglobi data n concentra tion [Mass/vol ume] by Automated count Erythrocy 82.2 - fl Normal No Nov 27 te mean 97.8 informati 2016 3:30 corpuscul on in AM ar volume source [Entitic data volume] by Automated count Monocytes 0.1 - 1.0 K/mm3 Normal No Nov 16 informati 2016 3:30 [#/volume on in AM ] in source Blood by data Automated count Monocytes 1.7 - 9.3 % Normal No Nov 16 / informati 2016 3:30 leukocyte on in AM s in source Blood by data Automated count Platelet 7.4 - fl Low No Nov 27 mean 10.4 informati 2016 3:30 volume on in AM [Entitic source volume] data in Blood by Automated count Platelets 142 - 424 K/mm3 Normal No Nov 27 informati 2016 3:30 [#/volume on in AM ] in source Blood data Erythrocy 4.6 - 6.2 M/mm3 Low No Nov 16 machelle informati 2016 3:30 [#/volume on in AM ] in source Amniotic data fluid Erythrocy 11.5 - % Normal No Nov 16 te 17.5 informati 2016 3:30 distribut on in AM ion width source [Entitic data volume] by Automated count Leukocyte 4.8 - K/MM3 Normal No Nov 16 s 10.8 informati 2016 3:30 [#/volume on in AM ] in source Blood data Cardiac enzymes Observa Value Referen Units Interpr Notes Date tion ce etation Range Creatine 0 - 4.0 U/L Normal No Nov 23 kinase.MB informati 2016 /Creatine on in 12:23 PM source kinase.to data deidra [Ratio] in Serum or Plasma Creatine 0.0 - 3.6 ng/mL Normal No Nov 23 kinase.MB informati 2016 on in 12:23 PM [Mass/vol source ume] in data Serum or Plasma Creatine 39 - 308 U/L Normal No Nov 23 kinase informati 2016 [Enzymati on in 12:23 PM c source activity/ data volume] in Serum or Plasma Troponin 0.00 - ng/mL Normal No Nov 23 I.cardiac 0.06 informati 2016 on in 12:23 PM [Mass/vol source ume] in data Serum or Plasma Comprehensive metabolic 2000 panel in Serum or Plasma Observa Value Referen Units Interpr Notes Date tion ce etation Range Albumin/G 1.1 - 1.8 No Normal No Nov 23 lobulin informati informati 2016 [Mass on in on in 12:23 PM ratio] in source source Serum or data data Plasma Albumin 3.4 - 5.0 gm/dL Normal No Nov 23 [Mass/vol informati 2016 ume] in on in 12:23 PM Serum or source Plasma data Alkaline 46 - 116 U/L Normal No Nov 23 phosphata informati 2016 se on in 12:23 PM [Enzymati source c data activity/ volume] in Serum or Plasma Bilirubin 0.2 - 1.0 mg/dL Normal No Nov 23 .total informati 2016 [Mass/vol on in 12:23 PM ume] in source Serum or data Plasma Urea 7 - 18 mg/dL Normal No Nov 23 nitrogen informati 2016 [Mass/vol on in 12:23 PM ume] in source Serum or data Plasma Calcium 8.5 - mg/dL Normal No Nov 23 [Mass/vol 10.1 informati 2017 ume] in on in 12:23 PM Serum or source Plasma data Chloride 98 - 107 mmoL/L Normal No Buck 12 [Moles/vo informati 2017 lume] in on in 12:23 PM Serum or source Plasma data Carbon 21.0 - mmoL/L Normal No Buck 12 dioxide, 32.0 informati 2017 total on in 12:23 PM [Moles/vo source lume] in data Serum or Plasma Creatinin 0.70 - mg/dL Normal No Nov 12 e 1.30 informati 2017 [Mass/vol on in 12:23 PM ume] in source Serum or data Plasma Estimated >60 ML/MIN No REFERENCE Buck 12 informati RANGE: 2017 glomerula on in >60 12:23 PM r source ML/MIN/1. filtratio data 73 SQUARE n rate METERSIf (GF this patient is -A merican, then multiply theresult by 1.210. Globulin 1.3 - 3.2 gm/dL High No Nov 23 [Mass/vol informati 2017 ume] in on in 12:23 PM Serum source data Glucose 74 - 106 mg/dL High No Nov 12 [Mass/vol informati 2017 ume] in on in 12:23 PM Serum or source Plasma data Potassium 3.5 - 5.1 mmoL/L Normal No Buck 12 informati 2017 [Moles/vo on in 12:23 PM lume] in source Serum or data Plasma Sodium 136 - 145 mmoL/L Normal No Nov 12 [Moles/vo informati 2017 lume] in on in 12:23 PM Serum or source Plasma data Aspartate 15 - 37 U/L Normal No Nov 23 informati 2017 aminotran on in 12:23 PM sferase source [Enzymati data c activity/ volume] in Serum or Plasma Alanine 12 - 78 U/L Normal No Nov 23 aminotran informati 2017 sferase on in 12:23 PM [Enzymati source c data activity/ volume] in Serum or Plasma Protein 6.4 - 8.2 gm/dL Normal No Buck 12 [Mass/vol informati 2017 ume] in on in 12:23 PM Serum or source Plasma data
[2017-01-06 12:00] LABS: BUN 16 mg/dL (7-18)
[2017-01-06 12:04] LABS: GFR (ESTIMATED) 50 ML/MIN (>60)
--- NOTE | 2017-01-06 12:34 | Emergency Room Report ---
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 N Clinical Suspician of Infection? N Mental Status: 1 - Regular (Normal Baseline) Sepsis Risk:Low Sepsis Risk Have you (or family members/close friends) recently traveled outside the [place]? N If Yes, where/when: Have you had exposure to infectious disease within the past month? N TB? Other? Specify: Source patient, RN notes reviewed, RN/MD Exam Limitations no limitations Comment This is a 71 rolled patient presented emergency room with precordial chest pain, onset 2 hours ago, at rest. Patient denies any shots of breath, any diaphoresis, any radiation of the chest pain. Patient's chest pain is described as "squeezing". He underwent a cardiac catheterization a week ago, resulting in 3 coronary stents and an additional radial artery stenting. Patient was seen couple days following the cardiac cath for recurrent chest pain. At that time cardiology was consulted and patient was started on Ranexa. ALLERGIES Coded Allergies: Penicillins (RASH, SOB 01/06/17) iodine (I-HIVES 01/06/17) Home Medications Active Scripts Fenofibrate (Fenofibrate 160MG (GEQ: Lofibra)) 160 MG PO DAILY #30 Ref 11 Prov: 04/12/12 Carvedilol (Coreg 3.125MG) 3.125 MG PO BID #60 TAB Prov: 11/27/16 Losartan Potassium (Losartan 25MG) 25 MG PO DAILY #30 TAB Prov: 11/27/16 Reported Medications Loratadine 10 MG PO DAILY [place]-3/Dha/Epa/Fish Oil (Fish Oil 500 MG Softgel) 2 EACH PO BID Cholecalciferol (Vitamin D3) (Vitamin D3) 10,000 UNIT PO WED, Furosemide (Lasix 40MG) 40 MG PO DAILY Allopurinol 100 MG PO DAILY POTASSIUM CHL (Potassium Chloride) 10 MEQ PO DAILY Metformin HCL (Metformin) 500 MG PO DAILY Albuterol Sulfate (Proair Hfa) 1 PUFF INH QID LEVOTHYROXINE SOD (Synthroid) 0.1 MG PO DAILY BUDESONIDE/FORMOTEROL FUMARATE (Symbicort 160-4.5 Mcg Inhaler) 1 PUFF IH BID RANOLAZINE (RANEXA) 500 MG PO BID History Medical History General CAD? Yes Angina: Yes [place]: No Hypertension? Yes Hyperlipidemia? Yes CHF? Yes DVT? No PE? No COPD? Yes Asthma? Yes Anemia? No GERD? Yes Gastric ulcers? No GI Bleed? No Hernia? Yes Thyroid Problems? Yes Hypothyroidism? Yes CVA? No Seizures? No Diabetes? Yes Insulin Dependent: No Insulin Pump: No Home FSBS? No Renal Insuffiency? No End Stage Renal Disease? No UTI? No Stones? No BPH? No GB Disease: No Nephritic Syndrome? No Asplenia? No Hepatitis? No Sickle Cell Disease? No Arthritis? Yes Migraines? No Cataracts? No Glaucoma? No MRSA? No HIV? No TB? No Anxiety? No Depression? No Cancer? No More? No Additional hx: Pedersen Renner Syndromegout Sleep apnea Back pain AAA Diverticulosis Colon polyps Gout Fibromyalgia Basal cell carcinoma right eyelid Cardiac stress test: negative 05/2013 Immunization Hx DT/Tetanus 5-10 Years Ago Flu 8927-8039 Flu Season Pneumonia Refuses Surgical Hx Previous Surgery?Y APPENDECTOMY HEART CATH =M 2% BLOCKAGE Family History Family Hx Diabetes No CAD No Hypertension No Hyperlipidemia Yes Cancer Yes TB No Social History Smoking Hx Smoker: Current Every Day Smoker Tobacco: No Type N/A Packs/day 2 1/2 - 3 Packs Are you/the child exposed to second-hand smoke: No Alcohol Alcohol: No Review of Systems All Other Systems Reviewed and Negative Cardiovascular chest pain Physical Exam Vital Signs Vital Signs Date Time Temp Pulse Resp B/P Pulse O2 O2 Flow FiO2 Ox Delivery Rate 01/06 1400 97.9 73 20 128/86 01/06 1318 73 20 128/86 97 01/06 1154 69 18 120/80 97 3 01/06 1135 68 20 152/105 96 3 01/06 1109 97.9 80 16 138/83 98 General Appearance normal appearance, WD/WN, no apparent distress Respiratory Status Yes: trachea midline, chest symmetrical, non tender chest. No: respiratory distress. Lung Sounds bilateral: normal breath sounds, lungs clear. Cardiovascular normal exam, regular rate/rhythm, no peripheral edema, no gallop, no JVD, no murmur, no rub, normal peripheral pulses Gastrointestinal normal bowel sounds, normal exam, non tender, soft, no organomegaly Extremities non-tender, normal range of motion, normal inspection Neurologic alert, equal opportunity director II-XII nml as tested, normal exam, oriented x 3 Mental status normal mood/affect Skin intact, normal color, warm/dry Medical Decision Making LABS/Meds/Orders Pt receiving controlled substance in ED? No Comment 12:30-case discussed Dr. Arun Orellana, advised the patient's condition and findings. Dr. Orellana recommended to repeat a second cardiac enzyme, if negative to send him home with indoor 30 minute grams daily and have patient see him tomorrow in the office at 10 AM, or mandatory follow-up. 13:30- reevaluated, he appears chest pain-free, medically stable, in no distress, asking to be discharged home. Results/Orders Laboratory Tests 01/06/17 1300: Creatine Kinase 125, CK-MB (CK-2) Rel Index 0.7, CK and CKMB Interp 0.9, Troponin I < 0.02 01/06/17 1120: B-Natriuretic Peptide 15, D-Dimer 407 *H 01/06/17 1120: Sodium 131 L, Potassium 4.2, Chloride 94 L, Carbon Dioxide 27, BUN 16, Creatinine 1.4 H, Estimated Creat Clear 76, Estimated GFR (MDRD) 50, Glucose 108 H, Calcium 8.9, Total Bilirubin 1.3 H, AST 20, ALT 43, Alkaline Phosphatase 66, Creatine Kinase 130, CK and CKMB Interp 1.1, Troponin I < 0.02, Total Protein 7.6, Albumin 3.8, Globulin 3.8 H, Albumin/Globulin Ratio 1.0 L, PT 10.6, INR 0.98, APTT 24.5, WBC 8.0, RBC 4.61, Hgb 14.8, Hct 43.0, MCV 93.4, RDW 12.4, Plt Count 242, MPV 7.1 L, Gran % 69.4, Gran # 5.6, Lymphocytes % 22.1 , Monocytes % 6.1, Eosinophils % 1.7, Basophils % 0.7, Lymphocytes # 1.8, Monocytes # 0.5, Eosinophils # 0.1, Basophils # 0.1, PUBS MCHC 34.3, MCH 32.0 H Current Medication Orders Sig/Tomasz Start time Last Medication Dose Route Stop Time Status Admin Isosorbide 30 MG ONCE ONE 01/06 1245 DC 01/06 Mononitrate PO 01/06 1246 1322 Aspirin 324 MG ONCE ONE 01/06 1130 DC 01/06 PO 01/06 1131 1130 Aspirin 0 .STK-MED ONE 01/06 1129 DC .ROUTE Aspirin 325 MG ONCE ONE 01/06 1115 CAN PO 01/06 1116 Sodium Chloride 10 ML PRN PRN 01/06 1115 DCD IV 01/07 1110 Orders Procedure Date/time Status CARDIAC ENZYMES 01/06 1315 Complete PROTIME/PARTIAL PROTIME 01/06 1145 Complete ELECTROCARDIOGRAM REQUEST 01/06 1110 Active IV SALINE LOCK 01/06 1110 Active OXYGEN PER NURSE 01/06 1110 Active CHEMISTRY DEPARTMENT CHAIR 01/06 1110 Active TROPONIN I 01/06 1110 Complete D-DIMER 01/06 1110 Complete CPK 01/06 1110 Complete COMPLETE METABOLIC PANEL 01/06 1110 Complete CKMB 01/06 1110 Complete CBC WITH AUTO DIFF 01/06 1110 Complete BRAIN NATRIURETIC PEPTIDE 01/06 1110 Complete 12 LEAD EKG-BESSON (INITIAL) 01/06 UNK Active CM/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 of ischemic chgs, no ectopy, normal QRS, normal [place], no EKG for comparison, non-spec. ST/Twave chgs, ST elevation, ST depression, LBBB, RBBB, ectopy, abnormal Q waves XRAY/CT/US XRAY/CT/US XRAY chest XR interpretation by discussed w/radiologist Xray Results no infiltrates, normal heart size, normal lung inflation sri Departure Departure Time of Disposition 1348 Disposition DC Home or Self Care(routine) Clinical Impression Primary Impression: Chest pain Qualifiers: Chest pain type: unspecified Qualified Code: R07.9 - Chest pain, unspecified Condition STABLE Referrals Arun Orellana MD tomorrow at 10:00am Patient Instructions DI for Chest Pain Additional Instructions Please add Imdur 30mg daily to your medication list, follow-up with Dr. Orellana at 10 AM tomorrow. Discharge Counseling Counseled pt/family regarding diagnosis, test results, medications/RX, home care, follow up needs Comment Please add Imdur 30mg daily to your medication list, follow-up with Dr. Orellana at 10 AM tomorrow. Prescriptions Current Visit Scripts ISOSORBIDE MONONITRATE (IMDUR 30MG) 30 MG PO DAILY #30 TAB Ref 2 ED Critical Care Critical Care No at 0905
--- NOTE | 2017-01-06 12:34 | Emergency Room Report ---
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 N Clinical Suspician of Infection? N Mental Status: 1 - Regular (Normal Baseline) Sepsis Risk:Low Sepsis Risk Have you (or family members/close friends) recently traveled outside the [place]? N If Yes, where/when: Have you had exposure to infectious disease within the past month? N TB? Other? Specify: Source patient, RN notes reviewed, RN/MD Exam Limitations no limitations Comment This is a 71 rolled patient presented emergency room with precordial chest pain, onset 2 hours ago, at rest. Patient denies any shots of breath, any diaphoresis, any radiation of the chest pain. Patient's chest pain is described as "squeezing". He underwent a cardiac catheterization a week ago, resulting in 3 coronary stents and an additional radial artery stenting. Patient was seen couple days following the cardiac cath for recurrent chest pain. At that time cardiology was consulted and patient was started on Ranexa. ALLERGIES Coded Allergies: Penicillins (RASH, SOB 01/06/17) iodine (I-HIVES 01/06/17) Home Medications Active Scripts Fenofibrate (Fenofibrate 160MG (GEQ: Lofibra)) 160 MG PO DAILY #30 Ref 11 Prov: 04/12/12 Carvedilol (Coreg 3.125MG) 3.125 MG PO BID #60 TAB Prov: 11/27/16 Losartan Potassium (Losartan 25MG) 25 MG PO DAILY #30 TAB Prov: 11/27/16 Reported Medications Loratadine 10 MG PO DAILY [place]-3/Dha/Epa/Fish Oil (Fish Oil 500 MG Softgel) 2 EACH PO BID Cholecalciferol (Vitamin D3) (Vitamin D3) 10,000 UNIT PO WED, Furosemide (Lasix 40MG) 40 MG PO DAILY Allopurinol 100 MG PO DAILY POTASSIUM CHL (Potassium Chloride) 10 MEQ PO DAILY Metformin HCL (Metformin) 500 MG PO DAILY Albuterol Sulfate (Proair Hfa) 1 PUFF INH QID LEVOTHYROXINE SOD (Synthroid) 0.1 MG PO DAILY BUDESONIDE/FORMOTEROL FUMARATE (Symbicort 160-4.5 Mcg Inhaler) 1 PUFF IH BID RANOLAZINE (RANEXA) 500 MG PO BID History Medical History General CAD? Yes Angina: Yes [place]: No Hypertension? Yes Hyperlipidemia? Yes CHF? Yes DVT? No PE? No COPD? Yes Asthma? Yes Anemia? No GERD? Yes Gastric ulcers? No GI Bleed? No Hernia? Yes Thyroid Problems? Yes Hypothyroidism? Yes CVA? No Seizures? No Diabetes? Yes Insulin Dependent: No Insulin Pump: No Home FSBS? No Renal Insuffiency? No End Stage Renal Disease? No UTI? No Stones? No BPH? No GB Disease: No Nephritic Syndrome? No Asplenia? No Hepatitis? No Sickle Cell Disease? No Arthritis? Yes Migraines? No Cataracts? No Glaucoma? No MRSA? No HIV? No TB? No Anxiety? No Depression? No Cancer? No More? No Additional hx: Pedersen Renner Syndromegout Sleep apnea Back pain AAA Diverticulosis Colon polyps Gout Fibromyalgia Basal cell carcinoma right eyelid Cardiac stress test: negative 05/2013 Immunization Hx DT/Tetanus 5-10 Years Ago Flu [id number] Flu Season Pneumonia Refuses Surgical Hx Previous Surgery?Y APPENDECTOMY HEART CATH =M 2% BLOCKAGE Family History Family Hx Diabetes No CAD No Hypertension No Hyperlipidemia Yes Cancer Yes TB No Social History Smoking Hx Smoker: Current Every Day Smoker Tobacco: No Type N/A Packs/day 2 1/2 - 3 Packs Are you/the child exposed to second-hand smoke: No Alcohol Alcohol: No Review of Systems All Other Systems Reviewed and Negative Cardiovascular chest pain Physical Exam Vital Signs Vital Signs Date Time Temp Pulse Resp B/P Pulse O2 O2 Flow FiO2 Ox Delivery Rate 01/06 1400 97.9 73 20 128/86 01/06 1318 73 20 128/86 97 01/06 1154 69 18 120/80 97 3 01/06 1135 68 20 152/105 96 3 01/06 1109 97.9 80 16 138/83 98 General Appearance normal appearance, WD/WN, no apparent distress Respiratory Status Yes: trachea midline, chest symmetrical, non tender chest. No: respiratory distress. Lung Sounds bilateral: normal breath sounds, lungs clear. 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 No Comment 12:30-case discussed Dr. Arun Orellana, advised the patient's condition and findings. Dr. Orellana recommended to repeat a second cardiac enzyme, if negative to send him home with indoor 30 minute grams daily and have patient see him tomorrow in the office at 10 AM, or mandatory follow-up. 13:30- reevaluated, he appears chest pain-free, medically stable, in no distress, asking to be discharged home. Results/Orders Laboratory Tests 01/06/17 1300: Creatine Kinase 125, CK-MB (CK-2) Rel Index 0.7, CK and CKMB Interp 0.9, Troponin I < 0.02 01/06/17 1120: B-Natriuretic Peptide 15, D-Dimer 407 *H 01/06/17 1120: Sodium 131 L, Potassium 4.2, Chloride 94 L, Carbon Dioxide 27, BUN 16, Creatinine 1.4 H, Estimated Creat Clear 76, Estimated GFR (MDRD) 50, Glucose 108 H, Calcium 8.9, Total Bilirubin 1.3 H, AST 20, ALT 43, Alkaline Phosphatase 66, Creatine Kinase 130, CK and CKMB Interp 1.1, Troponin I < 0.02, Total Protein 7.6, Albumin 3.8, Globulin 3.8 H, Albumin/Globulin Ratio 1.0 L, PT 10.6, INR 0.98, APTT 24.5, WBC 8.0, RBC 4.61, Hgb 14.8, Hct 43.0, MCV 93.4, RDW 12.4, Plt Count 242, MPV 7.1 L, Gran % 69.4, Gran # 5.6, Lymphocytes % 22.1 , Monocytes % 6.1, Eosinophils % 1.7, Basophils % 0.7, Lymphocytes # 1.8, Monocytes # 0.5, Eosinophils # 0.1, Basophils # 0.1, PUBS MCHC 34.3, MCH 32.0 H Current Medication Orders Sig/Tomasz Start time Last Medication Dose Route Stop Time Status Admin Isosorbide 30 MG ONCE ONE 01/06 1245 DC 01/06 Mononitrate PO 01/06 1246 1322 Aspirin 324 MG ONCE ONE 01/06 1130 DC 01/06 PO 01/06 1131 1130 Aspirin 0 .STK-MED ONE 01/06 1129 DC .ROUTE Aspirin 325 MG ONCE ONE 01/06 1115 CAN PO 01/06 1116 Sodium Chloride 10 ML PRN PRN 01/06 1115 DCD IV 01/07 1110 Orders Procedure Date/time Status CARDIAC ENZYMES 01/06 1315 Complete PROTIME/PARTIAL PROTIME 01/06 1145 Complete ELECTROCARDIOGRAM REQUEST 01/06 1110 Active IV SALINE LOCK 01/06 1110 Active OXYGEN PER NURSE 01/06 1110 Active FLOOR LAYER TILE 01/06 1110 Active TROPONIN I 01/06 1110 Complete D-DIMER 01/06 1110 Complete CPK 01/06 1110 Complete COMPLETE METABOLIC PANEL 01/06 1110 Complete CKMB 01/06 1110 Complete CBC WITH AUTO DIFF 01/06 1110 Complete BRAIN NATRIURETIC PEPTIDE 01/06 1110 Complete 12 LEAD EKG-BESSON (INITIAL) 01/06 UNK Active 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 of ischemic chgs, no ectopy, normal QRS, normal [place], no EKG for comparison, non-spec. ST/Twave chgs, ST elevation, ST depression, LBBB, RBBB, ectopy, abnormal Q waves XRAY/CT/US XRAY/CT/US XRAY chest XR interpretation by discussed w/radiologist Xray Results no infiltrates, normal heart size, normal lung inflation sri Departure Departure Time of Disposition 1348 Disposition DC Home or Self Care(routine) Clinical Impression Primary Impression: Chest pain Qualifiers: Chest pain type: unspecified Qualified Code: R07.9 - Chest pain, unspecified Condition STABLE Referrals Arun Orellana MD tomorrow at 10:00am Patient Instructions DI for Chest Pain Additional Instructions Please add Imdur 30mg daily to your medication list, follow-up with Dr. Orellana at 10 AM tomorrow. Discharge Counseling Counseled pt/family regarding diagnosis, test results, medications/RX, home care, follow up needs Comment Please add Imdur 30mg daily to your medication list, follow-up with Dr. Orellana at 10 AM tomorrow. Prescriptions Current Visit Scripts ISOSORBIDE MONONITRATE (IMDUR 30MG) 30 MG PO DAILY #30 TAB Ref 2 ED Critical Care Critical Care No at 0905
--- NOTE | 2017-01-06 13:47 | RADIOLOGY REPORT PS360 ---
CHEST-PORTABLE HISTORY: Chest pain, coronary artery disease pain ORDERING PHYSICIAN: Bijan López MD PATIENT AGE: 71 years COMPARISON: 01/01/2017 FINDINGS: The cardiomediastinal silhouette and pulmonary vascularity are within normal limits. The lungs are clear without infiltrates, suspicious nodules, or pleural effusions. No acute bony abnormalities. IMPRESSION: Negative chest, no acute finding
[2017-01-06] MEDS ORDERED: IMDUR 30MG. TAB30 MG PO (13:50)
[2017-01-06 14:00] VITALS: BP 128/86
== END 2017-01-06 14:01 | disposition home or self-care (01) ==
LOC: ER 11:07
PROVIDERS: Emergency Medicine
DX: R07.9 Chest pain, unspecified (principal); I10 Essential (primary) hypertension; E78.5 Hyperlipidemia, unspecified; J44.9 Chronic obstructive pulmonary disease, unspecified; E11.9 Type 2 diabetes mellitus without complications; Z79.899 Other long term (current) drug therapy

== ENCOUNTER 2017-02-27 11:33 | Emergency (ER) | payer MEDICARE ==
[~2017-02-27] VITALS: Ht 172.7 cm; Wt 108.9 kg
[~2017-02-27 11:33] MED LIST changes: +ADULT LOW DOSE81 MG; +CLINORIL GENER200 MG; +EFFIENT10 M2; +IMDUR 30MG. TAB30 MG PO; +NITROGLYCERIN0.4 M1; +RANEXA500 M1 PO
[2017-02-27] MEDS ORDERED: BISOPROLOL 5MG T5 MG PO (11:46)
[2017-02-27 11:48] LABS: HEMOGLOBIN 14.6 g/dL (14.1-18.0); LYMPH # 1.7 K/mm3 (0.7-4.5); LYMPH % 27.3 % (10-50)
--- NOTE | 2017-02-27 12:04 | Emergency Room Report ---
History of Present Illness Time Seen by 114Cindy Presenting Problem in Triage Pt arrived:Walked Presenting Problem:PT REPORTS R SIDED CHEST PAIN THAT BEGAN THIS MORNING, REPORTS PAIN HAS BEEN INTERMITTENT IN NATURE. STATES PAIN WAS SHARP WHEN IT FIRST BEGAN BUT IS NOW DULL. PT REPORTS INCREASING SOA X4 DAYS. 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 N Clinical Suspician of Infection? N Mental Status: 1 - Regular (Normal Baseline) Sepsis Risk:Low Sepsis Risk Have you (or family members/close friends) recently traveled outside the [place]? N If Yes, where/when: Have you had exposure to infectious disease within the past month? N TB? Other? Specify: Patient reports tight cough for for days, feels like he wants to cough up sputum but cannot do so easily; no new pedal edema or calf pain; has hx COPD and uses inhalers and nebs, each one of them used three times yesterday. He did not use neb tx today. He also uses a daily steroid inhaler. He smokes. He has had "stabbing" right sided pain since this morning. No diaphoresis, nausea, or radiation. He has multiple cardiac RF's, and has had stents placed by Dr. Orellana in December with some repeat ER visits post stent placement, requiring some adjustments in medication; he is on Xarelto already. ALLERGIES Coded Allergies: Penicillins (RASH, SOB 01/06/17) iodine (I-HIVES 01/06/17) pneumococcal 7-valent conjugate to (From PREVNAR) (01/28/17) Home Medications Active Scripts Fenofibrate (Fenofibrate 160MG (GEQ: Lofibra)) 160 MG PO DAILY #30 Ref 11 Prov: 04/12/12 Carvedilol (Coreg 3.125MG) 3.125 MG PO BID #60 TAB Prov: 11/27/16 Losartan Potassium (Losartan 25MG) 25 MG PO DAILY #30 TAB Prov: 11/27/16 Reported Medications BISOPROLOL FUMARATE (Bisoprolol 5MG) 5 MG PO DAILY #30 Loratadine 10 MG PO DAILY [place]-3/Dha/Epa/Fish Oil (Fish Oil 500 MG Softgel) 2 EACH PO BID Cholecalciferol (Vitamin D3) (Vitamin D3) 10,000 UNIT PO WED, Furosemide (Lasix 40MG) 40 MG PO DAILY Allopurinol 100 MG PO DAILY POTASSIUM CHL (Potassium Chloride) 10 MEQ PO DAILY Metformin HCL (Metformin) 500 MG PO DAILY Albuterol Sulfate (Proair Hfa) 1 PUFF INH QID LEVOTHYROXINE SOD (Synthroid) 0.1 MG PO DAILY BUDESONIDE/FORMOTEROL FUMARATE (Symbicort 160-4.5 Mcg Inhaler) 1 PUFF IH BID RANOLAZINE (RANEXA) 500 MG PO BID Sulindac ([place] Generic 200MG Tab) Nitroglycerin Aspirin (Adult Low Dose Aspirin EC) Prasugrel HCl (Effient) History Medical History General CAD? Yes Angina: Yes [place]: Yes Hypertension? Yes Hyperlipidemia? Yes CHF? Yes DVT? No PE? No COPD? Yes Asthma? Yes Anemia? No GERD? Yes Gastric ulcers? No GI Bleed? No Hernia? Yes Thyroid Problems? Yes Hypothyroidism? Yes CVA? No Seizures? No Diabetes? Yes Insulin Dependent: No Insulin Pump: No Home FSBS? No Renal Insuffiency? No End Stage Renal Disease? No UTI? No Stones? No BPH? No GB Disease: No Nephritic Syndrome? No Asplenia? No Hepatitis? No Sickle Cell Disease? No Arthritis? Yes Migraines? No Cataracts? No Glaucoma? No MRSA? No HIV? No TB? No Anxiety? No Depression? No Cancer? No More? Yes Additional hx: Pedersen Renner Syndromegout Sleep apnea Back pain AAA Diverticulosis Colon polyps Gout Fibromyalgia Basal cell carcinoma right eyelid Cardiac stress test: negative 05/2013 Immunization Hx DT/Tetanus 5-10 Years Ago Flu [id number] Flu Season Pneumonia Refuses Surgical Hx Previous Surgery?Y APPENDECTOMY HEART CATH =M 2% BLOCKAGE STENTS IN HEART X 4 Family History Family Hx Diabetes No CAD No Hypertension No Hyperlipidemia Yes Cancer Yes TB No Social History Smoking Hx Smoker: Former Smoker Tobacco: No Packs/day 2 1/2 - 3 Packs Alcohol Alcohol: No Review of Systems All Other Systems Reviewed and Negative Respiratory see HPI Cardiovascular see HPI Physical Exam Vital Signs Vital Signs Date Time Temp Pulse Resp B/P Pulse O2 O2 Flow FiO2 Ox Delivery Rate 02/27 1502 71 14 145/95 91 02/27 1234 68 20 131/66 100 02/27 1230 98 ROOM AIR 02/27 1133 98.8 68 20 143/95 96 General Appearance normal appearance, WD/WN, no apparent distress Eye Exam - bilateral eye normal exam, bilateral eye PERRL, bilateral eye EOMI Neck normal inspection, non-tender, supple, full range of motion Respiratory Status Yes: trachea midline, chest symmetrical, non tender chest, non productive cough. No: respiratory distress, tender on palpation, use of accessory muscles, pain on inspiration, pain on expiration, productive cough. Lung Sounds bilateral: normal breath sounds, lungs clear, decreased breath sounds. Cardiovascular normal exam, regular rate/rhythm, no peripheral edema, no gallop, no JVD, no murmur, no rub, normal peripheral pulses Gastrointestinal normal bowel sounds, normal exam, soft, no organomegaly, no guarding, no rebound (central obesity) Extremities non-tender, normal range of motion, normal inspection, normal capillary refill, no calf tenderness, no pedal edema Neurologic alert, normal exam, no motor/sensory deficits, oriented x 3 Skin intact, normal color, warm/dry Medical Decision Making LABS/Meds/Orders Pt receiving controlled substance in ED? No Results/Orders Laboratory Tests 02/27/17 1445: Troponin I < 0.02 02/27/17 1140: Sodium 137, Potassium 3.9, Chloride 98, Carbon Dioxide 31, BUN 15, Creatinine 1.3, Estimated Creat Clear 81, Estimated GFR (MDRD) 55, Glucose 124 H, Calcium 9.0, Total Bilirubin 0.7, AST 10 L, ALT 34, Alkaline Phosphatase 60, Creatine Kinase 86, CK-MB (CK-2) Rel Index 0.9, CK and CKMB Interp 0.8, Troponin I < 0.02 , Total Protein 7.2, Albumin 3.8, Globulin 3.4 H, Albumin/Globulin Ratio 1.1, WBC 6.2, RBC 4.50 L, Hgb 14.6, Hct 41.7 L, MCV 92.7, RDW 13.0, Plt Count 229, MPV 7.0 L, Gran % 61.6, Gran # 3.9, Lymphocytes % 27.3, Monocytes % 6.5, Eosinophils % 3.5, Basophils % 1.1, Lymphocytes # 1.7, Monocytes # 0.4, Eosinophils # 0.2, Basophils # 0.1, PUBS MCHC 35.0, MCH 32.4 H Current Medication Orders Sig/Tomasz Start time Last Medication Dose Route Stop Time Status Admin Methylprednisolone 0 .STK-MED ONE 02/27 1235 DC Sodium Succinate .ROUTE Albuterol/Ipratropium 0 .STK-MED ONE 02/27 1228 DC INH Albuterol/Ipratropium 3 ML ONCE ONE 02/27 1200 DC 02/27 INH 02/27 1201 1230 Methylprednisolone 125 MG ONCE ONE 02/27 1200 DC 02/27 Sodium Succinate IV 02/27 1201 1239 Sodium Chloride 10 ML PRN PRN 02/27 1145 AC IV 02/28 1139 Orders Procedure Date/time Status TROPONIN I 02/27 1500 Complete OP COURTSEY MEAL 02/27 1302 Active RT Pulse Oximetry, Provide 02/27 1245 Active RT Aerosol Treatment, Provide 02/27 1245 Active RT REQUEST DUONEB 02/27 1157 Active 12 LEAD EKG-BESSON (INITIAL) 02/27 1140 Active ELECTROCARDIOGRAM REQUEST 02/27 1139 Active IV SALINE LOCK 02/27 1139 Active CONTRACT LAW SPECIALIST 02/27 1139 Active CBC WITH AUTO DIFF 02/27 1139 Complete CARDIAC ENZYMES 02/27 1139 Complete CHEM 12 PROFILE 02/27 1139 Complete CM/EKG CM/EKG EKG rate, NSR, rhythm, no evid. of ischemic chgs, no ectopy, normal MT, normal EKG (NSR ), compared w/(date of old) (no new change from 01/12/17) XRAY/CT/US XRAY/CT/US XR interpretation by reviewed by me Xray Results normal/NAD, no infiltrates, normal heart size Pulmonary Embolism Score WELL'S CRITERIA FOR PE WELL'S CRITERIA FOR PE Response Value Clinical signs/symptoms of DVT NO 0 PE is #1 diagnosis or equally likely NO 0 Heart rate is > 100 NO 0 Immobile at least 3 days, or surgery in past 4 wks NO 0 Previously, obj. diagnosed PE or DVT NO 0 Hemoptysis NO 0 Malignancy w/Rx within 6mo, or palliative NO 0 Total 0 Patient's PE Risk <1pt=LO RISK (<3%) Progress ED Progress Notes 1 Date 02/27/17 Time 1301 Comment Feels better s/p nebs, resting comfortably; will check three hour trop ED Progress Notes 2 Date 02/27/17 Time 1509 Comment States has felt fine and no discomfort since receiving solumedrol and duoneb. No complaints. ED Progress Notes 3 Date 02/27/17 Time 1552 Comment Second troponin normal; no complaints Departure Departure Time of Disposition 1552 Disposition DC Home or Self Care(routine) Clinical Impression Primary Impression: Cough Secondary Impressions: Atypical chest pain Condition STABLE Referrals Sriram Shelby MD (Family) Patient Instructions DI for Atypical Chest Pain Additional Instructions Medrol dose ty, continue nebs at home, see Dr. Shelby in two to three days for recheck Discharge Counseling Counseled pt/family regarding diagnosis, test results, medications/RX, home care, follow up needs Prescriptions Current Visit Scripts Methylprednisolone (Medrol Dose Ty) 4 MG PO UD #1 TY TAKE DIRECTED ON PACKAGING ED Critical Care Critical Care No at 1558
[2017-02-27 12:16] LABS: BUN 15 mg/dL (7-18)
[2017-02-27 12:17] LABS: GFR (ESTIMATED) 55 ML/MIN (>60)
--- NOTE | 2017-02-27 14:08 | RADIOLOGY REPORT PS360 ---
CHEST(2 VIEWS-NOT PORTABLE) COMPARISON: PA and lateral chest 11/27/2016 HISTORY: Chest pain TECHNIQUE: PA and lateral chest FINDINGS: The lung linares are well expanded and appear clear of infiltrate. The cardiac silhouette and vascularity are normal and is no pleural fluid. There is multilevel degenerative changes of the thoracic spine. IMPRESSION: 1. Acute chest findings
[2017-02-27] MEDS ORDERED: MEDROL 4MG. DOSE4 MG PO (15:08)
[2017-02-27 16:08] VITALS: BP 142/77
== END 2017-02-27 16:10 | disposition home or self-care (01) ==
LOC: ER 11:33
PROVIDERS: Emergency Medicine
DX: R07.89 Other chest pain (principal); R05 Cough; I25.10 Atherosclerotic heart disease of native coronary artery without angina pectoris; F17.210 Nicotine dependence, cigarettes, uncomplicated; Z95.5 Presence of coronary angioplasty implant and graft; E11.9 Type 2 diabetes mellitus without complications; E03.9 Hypothyroidism, unspecified; I11.0 Hypertensive heart disease with heart failure; I50.9 Heart failure, unspecified; J44.9 Chronic obstructive pulmonary disease, unspecified; I25.2 Old myocardial infarction; Z79.84 Long term (current) use of oral hypoglycemic drugs; Z79.82 Long term (current) use of aspirin; Z79.51 Long term (current) use of inhaled steroids; Z79.899 Other long term (current) drug therapy